=== PATIENT | male | born 1935 | race Caucasian/White ===

== ENCOUNTER 2016-07-11 17:35 | Emergency (ER) | payer OTHER ==
[~2016-07-11 17:35] MED LIST: BACL10TA PO; CADU10TA PO; CLON0.5T PO; HYDR-3580 OR; LISI-363 PO; SERT-132 PO; TAB-TAB PO; TAMS0.4C67 PO; VITA-13 PO
[2016-07-11 17:37] VITALS: BP 175/88; PULSE 95; RESP 15; TEMP 98.4; O2SAT 97
[2016-07-11] MEDS ORDERED: LISI-515 PO (18:36)
--- NOTE | 2016-07-11 18:57 | PD ---
HPI Chief Complaint: Bite or Sting Time Seen by Provider: 18:57 Travel History International Travel<30 days: No Contact w/Intl Traveler<30days: No Traveled to known affect area: No History of Present Illness HPI 81-year-old male presents to ED for evaluation of 3 day history of painful, pruritic area on the back of the right lower leg. Patient states that the area was initially itchy, became red and painful over the course of last 3 days. He denies known injury. He denies fevers, chills, nausea, vomiting, limitations to range of motion of the extremity, history of similar injury or previous MRSA infection. No treatment attempted at home. Patient denies chronic health problems, takes no daily medications. Endorses allergy to penicillin and aspirin. PFSH Past Medical History Arthritis: Yes Anxiety: Yes Depression: Yes Cancer: No High Cholesterol: Yes Diabetes: No Diminished Hearing: Yes (MELI EARS) Hepatitis: No Hiatal Hernia: No Hypertension: Yes Respiratory: Yes (SLEEP APNEA, USES CPAP, HAS ALLERGIES) Sleep Apnea: Yes Thyroid Disease: No Past Surgical History Ear Surgery: Yes (RIGHT EAR/RUPTURE) Genitourinary Surgery: Yes (RIGHT INGUINAL HERNIA REPAIR) Oral Surgery: No Pacemaker: No Other Surgery: Yes Social History Alcohol Use: Yes (1-2 BEERS FOUR X WEEK) Tobacco Use: No Substance Use: No Allergies-Medications (Allergen,Severity, Reaction): Coded Allergies: Aspirin (Verified Allergy, Intermediate, ABDOMINAL PAIN, 07/11/16) Penicillin (Verified Allergy, Intermediate, RASH/SWELLING, 07/11/16) Reported Meds & Prescriptions Reported Meds & Active Scripts Active Reported Lisinopril 20 Mg Tab 20 Mg PO DAILY Review of Systems Except as stated in HPI: all other systems reviewed are Neg Physical Exam Narrative GENERAL: Well-nourished, well-developed male in no acute distress. SKIN: Warm and dry. There is an erythematous, indurated area in the posterior right lower leg which measures about 2 cm in diameter. No fluctuance, pointing or drainage. There is a zone of inflammation around it but no lymphangitis. No popliteal LAD. HEAD: Normocephalic. EYES: No scleral icterus. No injection or drainage. NECK: Supple, trachea midline. No JVD or lymphadenopathy. CARDIOVASCULAR: Regular rate and rhythm without murmurs, gallops, or rubs. 2+ DP and radial pulses bilaterally. RESPIRATORY: Breath sounds clear and equal bilaterally. No accessory muscle use. GASTROINTESTINAL: Abdomen soft, non-tender, nondistended. Active bowel sounds. MUSCULOSKELETAL: No cyanosis, or edema. The patient is ambulatory, moves extremities spontaneously. He retains full, active range of motion of the right lower extremity. BACK: Nontender without obvious deformity. No CVA tenderness. Data Data Last Documented VS Vital Signs Date Time Temp Pulse Resp B/P Pulse Ox O2 Delivery O2 Flow Rate FiO2 07/11/16 17:37 98.4 95 15 175/88 97 MDM Medical Decision Making Medical Screen Exam Complete: Yes Emergency Medical Condition: Yes Differential Diagnosis Insect bite versus folliculitis versus abscess versus cellulitis versus other Narrative Course 81-year-old male presents to ED for evaluation of 3 day history of painful, pruritic area on the back of the right lower leg. Patient states that the area was initially itchy, became red and painful over the course of last 3 days. He denies known injury. He denies fevers, chills, limitations to range of motion of the extremity, history of similar injury or previous MRSA infection. Vitals reviewed. Physical exam reveals a very healthy-appearing elderly male in no acute distress. There is a tender, erythematous 2 cm induration on the posterior aspect of the right leg, just distal to the knee. No fluctuance or drainage. No cellulitic streaking. No popliteal LAD. Patient retains full, active range of motion of the lower extremity. 2+ DP pulses bilaterally. Suspect this may be an insect bite but I don't see a punctum. We'll treat with clindamycin twice a day 7 days. Patient was instructed to keep the leg elevated, apply warm compresses, utilize [id number] pain medications, return for worsening symptoms. He indicated understanding of the instructions, is amenable to the plan of care. He is stable and discharged home. Diagnosis Primary Impression: Cellulitis of right lower extremity Referrals: Primary Care Physician Patient Instructions: Cellulitis (ED), General Instructions Additional Instructions: Rest, hydrate. Keep the leg elevated to reduce throbbing pain and swelling. Warm, moist compresses applied to the area for 10-15 minutes 4-5 times a day will help to relieve pain and allow the area to drain. Take all antibiotics as prescribed, even if your symptoms go away. Follow up with your primary care provider next week. Return to the ED for worsening of symptoms or any urgent or emergent medical condition. Med/Other Pt SpecificInfo: Prescription(s) given Disposition: 01 DISCHARGE HOME Condition: Stable Emmanuelle Wayne Jul 11, 2016 18:57
[2016-07-11] MEDS ORDERED: CLINDAMYCIN 150 MG CAP PO ONE (19:15)
[2016-07-11] MEDS ORDERED: CLIN1CAP6 PO (19:23)
== END 2016-07-11 20:34 | disposition home or self-care (01) ==
LOC: NETRI 17:35
DX: L03.115 Cellulitis of right lower limb (principal); F32.9 Major depressive disorder, single episode, unspecified; E78.00 Pure hypercholesterolemia, unspecified; I10 Essential (primary) hypertension; G47.30 Sleep apnea, unspecified
CPT/HCPCS: 99283